=== PATIENT | female | born 1970 | race Two or more races ===

== ENCOUNTER 2024-01-13 12:10 | Inpatient (IN) | payer MEDICAID, OTHER ==
[~2024-01-13] VITALS: Ht 162.6 cm; Wt 61.0 kg
[2024-01-13 13:39] LABS: Basophils # (auto) 0 10 ^3/uL (0-0.2); Basophils % (auto) 0.2 % (0.0-2.0); Eosinophils # (auto) 0 10 ^3/uL (0-0.8); Hematocrit 43.2 % (36.0-46.0); Lymphocytes % (auto) 6.4 % (10.0-50.0); Mean Corpuscular Hemoglobin 32.9 pg (28.0-32.0); Mean Corpuscular Hgb Conc. 34.8 g/dL (32.0-36.0); Mean Corpuscular Volume 94.5 fL (80.0-100.0); Monocytes # (auto) 0.6 10 ^3/uL (0-1.3); Neutrophils # (auto) 13.8 10 ^3/uL (1.6-8.6); Neutrophils % (auto) 89.4 % (37.0-80.0); Platelet Count (auto) 272 10^3/uL (140-450); Red Blood Cells 4.57 10^6/uL (4.0-5.20); Red Cell Distribution Width 13.6 % (11.8-14.3); White Blood Cell 15.4 10^3/uL (4.4-10.8)
[2024-01-13 13:53] LABS: Alanine Aminotransferase 12 U/L (7-40); Albumin 4.6 g/dL (3.2-4.8); Alkaline Phosphatase 82 U/L (46-116); Anion Gap 6 (5-15); Aspartate Aminotransferase 9 U/L (13-40); BUN/Creatinine Ratio 16.4 (10.0-20.0); Blood Urea Nitrogen 11 mg/dL (9-23); Calcium 10.5 mg/dL (8.7-10.4); Carbon Dioxide 27 mmol/L (20-30); Chloride 105 mmol/L (98-107); Glucose 151 mg/dL (74-106); Potassium 3.9 mmol/L (3.5-5.1); Sodium 138 mmol/L (136-145); Total Protein 7.3 g/dL (5.7-8.2)
[2024-01-13 14:39] LABS: Urine Bacteria None Seen /hpf (None Seen); Urine Blood 1+ /uL (Negative); Urine Clarity Turbid (Clear); Urine Color Yellow (Yellow); Urine Mucus MODERATE (None Seen); Urine Protein, UAD 1+ (Negative); Urine Specific Gravity 1.035 (1.001-1.035); Urine Urobilinogen Normal (Negative); Urine WBC 3 /hpf (0 - 5); Urine pH 6.5 (5.0-9.0)
[2024-01-13] MEDS: ONDANSETRON ODT 4 MG TAB PO ONE (18:33)
[2024-01-13] MEDS: KETOROLAC TROMETH 30 MG/ML 1ML VIAL IM ONE (18:34)
[2024-01-14] VITALS (15 sets, daily range): BP systolic 84–101; BP diastolic 42–59; PULSE 46–63; RESP 15–18; TEMP 97.7–98.4; O2SAT 94–100
[2024-01-14] MEDS: SODIUM CHLORIDE 0.9% 1,000 ML IV SCH ×2 (05:35→18:54)
[2024-01-14 06:01] LABS: Basophils # (auto) 0 10 ^3/uL (0-0.2); Basophils % (auto) 0.5 % (0.0-2.0); Eosinophils # (auto) 0.2 10 ^3/uL (0-0.8); Eosinophils % (auto) 2.3 % (0.0-7.0); Hematocrit 39.9 % (36.0-46.0); Hemoglobin 13.8 g/dL (12.2-16.2); Lymphocytes # (auto) 2.2 10 ^3/uL (0.4-5.4); Lymphocytes % (auto) 25.4 % (10.0-50.0); Mean Corpuscular Hemoglobin 33.3 pg (28.0-32.0); Mean Corpuscular Hgb Conc. 34.5 g/dL (32.0-36.0); Mean Corpuscular Volume 96.4 fL (80.0-100.0); Monocytes # (auto) 0.5 10 ^3/uL (0-1.3); Monocytes % (auto) 6.2 % (0.0-12.0); Neutrophils # (auto) 5.6 10 ^3/uL (1.6-8.6); Neutrophils % (auto) 65.6 % (37.0-80.0); Platelet Count (auto) 260 10^3/uL (140-450); Red Blood Cells 4.14 10^6/uL (4.0-5.20); Red Cell Distribution Width 13.5 % (11.8-14.3); White Blood Cell 8.6 10^3/uL (4.4-10.8)
[2024-01-14] MEDS ORDERED: ONDANSETRON HCL 4 MG/2 ML VIAL IV PRN (06:15)
[2024-01-14] MEDS: PANTOPRAZOLE 40 MG/10 ML VIAL INJ IV ONE (06:19)
[2024-01-14] MEDS: SODIUM CHLORIDE 0.9% 500 ML IV ONE (07:46)
[2024-01-14 09:01] LABS: COVID19 ANTIGEN SOFIA FIA NEGATIVE (NEGATIVE); Rapid Influenza A Negative (Negative); Rapid Influenza B Negative (Negative)
[2024-01-14] MEDS: ALBUTEROL SULF 2.5 MG/0.5ML(0.5%) NEB SOLN NEB PRN (13:02)
[2024-01-14] MEDS: IPRATROPIUM BROM 0.5 MG/2.5ML INH SOL NEB SCH (13:02)
[2024-01-14] MEDS ORDERED: ACETAMINOPHEN 500 MG TAB PO PRN (18:15)
[2024-01-15] VITALS (10 sets, daily range): BP systolic 85–112; BP diastolic 45–61; PULSE 42–57; RESP 16–20; TEMP 97–97.7; O2SAT 94–100
[2024-01-15 08:43] LABS: Basophils # (auto) 0 10 ^3/uL (0-0.2); Basophils % (auto) 0.9 % (0.0-2.0); Eosinophils # (auto) 0.2 10 ^3/uL (0-0.8); Eosinophils % (auto) 3.8 % (0.0-7.0); Hematocrit 37.6 % (36.0-46.0); Hemoglobin 12.9 g/dL (12.2-16.2); Lymphocytes # (auto) 1.6 10 ^3/uL (0.4-5.4); Mean Corpuscular Hemoglobin 33.1 pg (28.0-32.0); Mean Corpuscular Hgb Conc. 34.2 g/dL (32.0-36.0); Mean Corpuscular Volume 96.7 fL (80.0-100.0); Monocytes # (auto) 0.3 10 ^3/uL (0-1.3); Monocytes % (auto) 5.8 % (0.0-12.0); Neutrophils # (auto) 2.7 10 ^3/uL (1.6-8.6); Neutrophils % (auto) 56.5 % (37.0-80.0); Platelet Count (auto) 219 10^3/uL (140-450); Red Blood Cells 3.88 10^6/uL (4.0-5.20); Red Cell Distribution Width 13.1 % (11.8-14.3); White Blood Cell 4.8 10^3/uL (4.4-10.8)
[2024-01-15 09:01] LABS: Chloride 109 mmol/L (98-107); Potassium 4.1 mmol/L (3.5-5.1); Sodium 142 mmol/L (136-145)
[2024-01-15 09:02] LABS: Anion Gap 5 (5-15); Calcium 9.2 mg/dL (8.7-10.4); Carbon Dioxide 28 mmol/L (20-31)
[2024-01-15 09:07] LABS: BUN/Creatinine Ratio 13.7 (10.0-20.0); Blood Urea Nitrogen 10 mg/dL (9-23); Glucose 94 mg/dL (74-106)
[2024-01-15 10:06] LABS: Anti-Nuclear Antibody Direct Negative (Negative)
[2024-01-15] MEDS: SODIUM CHLORIDE 0.9% 500 ML IV ONE (10:43)
[2024-01-15] MEDS: PANTOPRAZOLE 40 MG/10 ML VIAL INJ IV SCH (10:43)
[2024-01-15 12:20] LABS: Amphetamine Screen, Urine Neg (NEGATIVE)
[2024-01-15 12:21] LABS: Barbiturate Scree,Urine Neg (NEGATIVE); Benzodiazephine Screen, Urine Neg (NEGATIVE); Cannabinoid Screen, Urine Neg (NEGATIVE); Cocaine Screen, Urine Neg (NEGATIVE); Opiate Scree,Urine Neg (NEGATIVE); Phencyclidine Screen, Urine Neg (NEGATIVE)
== END 2024-01-15 15:15 | disposition home or self-care (01) | DRG 249 ==
LOC: ER 12:10 → TELE-CENTR 01-14 05:10 → TELE 01-14 05:10 → TELE-CENTR 01-14 08:57
PROVIDERS: ADMIT Internal Medicine Geriatric Medicine; ATTEND Emergency Medicine
DX: A09 Infectious gastroenteritis and colitis, unspecified (principal); J44.1 Chronic obstructive pulmonary disease with (acute) exacerbation; R00.1 Bradycardia, unspecified; K80.20 Calculus of gallbladder without cholecystitis without obstruction; Z20.822 Contact with and (suspected) exposure to COVID-19; K44.9 Diaphragmatic hernia without obstruction or gangrene; Z98.891 History of uterine scar from previous surgery
CPT/HCPCS: 36415; 71045; 74176; 76705; 80048; 80053; 80307; 80320; 81001; 81025; 83036; 83690; 83880; 84443; 84484; 85025; 86038; 86141; 86431; 87081; 87426; 87804; 93005; 93306; 94640; G0378; J2470

== ENCOUNTER 2024-05-23 12:48 | Inpatient (IN) | payer MEDICAID ==
[~2024-05-23] VITALS: Ht 162.6 cm; Wt 26.6 kg
--- NOTE | 2024-05-23 13:01 | ED.PDOC ---
GI ASSESSMENT HPI Comments 54 y.o female presents to the ED for a chief complaint of epigastric pain associated with nausea and vomiting that started this morning at 0500. Patient describes pain as sharp, constant, non radiating and rating a 10/10 on the pain scale. Patient reported over 20-30 non bilious non bloody emesis. Patient reports similar pain last year around 12/2023, was admitted at this hospital due to gastroenteritis. Time Seen by MD: 12:54 Primary Care Provider: NONE Reviewed Notes: Nurses Notes, Medications, Allergies Allergies: Coded Allergies: NO KNOWN ALLERGIES (Unverified , 01/13/24) Home Meds No Active Prescriptions or Reported Meds Information Source: Patient Mode of Arrival: Ambulatory Timing: Hours Duration: Intermittent Quality: Sharp Vomitus: Hard Stool: Normal Severity: Moderate Recent: None Recent Hx of: None Pain Location: Epigastric Modifying Factors: Nothing Associated sign and symptoms: Nausea, Vomiting, Abdominal Pain Past Medical History PAST MEDICAL HISTORY: Denies Surgical History: (2), Tubal Ligation [employer]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 [employer]EN[employer]AL [employer] INSPECTOR Hx Family History Family History: Reviewed,noncontributory to illness Social History Smoker: Non-Smoker Alcohol: Denies ETOH Use Drugs: Denies Drug Use Lives In: Home Constitutional: denies: chills, diaphoresis, fatigue, fever, malaise, sweats, weakness, others EENTM: denies: blurred vision, double vision, ear bleeding, ear discharge, ear drainage, ear pain, ear ringing, eye pain, eye redness, hearing loss, mouth pain, mouth swelling, nasal discharge, nose bleeding, nose congestion, nose pain, photophobia, tearing, throat pain, throat swelling, voice changes, others Respiratory: denies: cough, hemoptysis, orthopnea, SOB at rest, shortness of breath, SOB with excertion, stridor, wheezing, others Cardiovascular: denies: chest pain, dizzy spells, diaphoresis, Dyspnea on exertion, edema, irregular heart beat, left arm pain, lightheadedness, palpitations, PND, syncope, others Gastrointestinal: reports: abdominal pain, nausea, vomiting; denies: abdomen distended, blood streaked bowels, constipated, diarrhea, dysphagia, difficulty swallowing, hematemesis, melena, poor appetite, poor fluid intake, rectal bleeding, rectal pain, others Genitourinary: denies: abnormal vagina bleeding, burning, dyspareunia, dysuria, flank pain, frequency, hematuria, incontinence, pain, , vagina discharge, urgency, others Neurological: denies: dizziness, fainting, headache, left sided numbness, left sided weakness, numbness, paresthesia, pre-existing deficit, right sided numbness, right sided weakness, seizure, speech problems, tingling, tremors, weakness, others Musculoskeletal: denies: back pain, gout, joint pain, joint swelling, muscle pain, muscle stiffness, neck pain, others Integumetry: denies: bruises, change in color, change in hair/nails, dryness, laceration, lesions, lumps, rash, wounds, others Allergic/Immunocompromised: denies: Difficulty Healing, Frequent Infections, Hives, Itching, others Hematologic/Lymphatic: denies: anemia, blood clots, easy bleeding, easy bruising, swollen glands, others Endocrine: denies: excessive hunger, excessive sweating, excessive thirst, excessive urination, flushing, intolerance to cold, intolerance to heat, unexplained weight gain, unexplained weight loss, others Psychiatric: denies: anxiety, bipolar disorder, depression, hopeless, panic disorder, schizophrenia, sleepless, suicidal, others All Other Systems: Reviewed and Negative Physical Exam General Appearance: Moderate Distress HEENT: Normal ENT Inspection, Pharynx Normal, TMs Normal Neck: Full Range of Motion, Non-Tender, Normal, Normal Inspection Respiratory: Chest Non-Tender, Lungs Clear, No Accessory Muscle Use, No Respiratory Distress, Normal Breath Sounds Cardiovascular: No Edema, No JVD, No Murmur, No Gallop, Normal Peripheral Pulses, Regular Rate/Rhythm Breast Exam: Deferred Gastrointestinal: Epigastric, No Organomegaly, No Pulsatile Mass, Normal Bowel Sounds, Soft, Tenderness Genitalia: Deferred Pelvic: Deferred Rectal: Deferred Extremities: No calf tenderness, Normal capillary refill, Normal inspection, Normal range of motion, Non-tender, No pedal edema Musculoskeletal : Apperance: Normal Neurologic: Alert, coronary clinical specialist II-XII nml as Tested, No Motor Deficits, Normal Affect, Normal Mood, No Sensory Deficits Cerebellar Function: Normal Reflexes: Normal Skin: Dry, Normal Color, Warm Lymphatic: No Adenopathy Was a procedure done? Was a procedure done?: No GI differential Dx Differential Diagnosis: Cholangitis, Cholecystitis, Esophagitis, Gastroenteritis, UTI, Electrolyte Imbalance, Viral X-Ray, Labs, Meds, VS Vital Signs Date Time Temp Pulse Resp B/P (MAP) Pulse Ox O2 Delivery O2 Flow Rate FiO2 05/23/24 13:20 98.8 55 18 89/50 (63) 99 Lab Test 05/23/24 13:47 Range/Units White Blood Count 10.1 4.4-10.8 10^3/uL Red Blood Count 4.50 4.0-5.20 10^6/uL Hemoglobin 14.6 12.2-16.2 g/dL Hematocrit 43.2 36.0-46.0 % Mean Corpuscular Volume 96.2 80.0-100.0 fL Mean Corpuscular Hemoglobin 32.6 H 28.0-32.0 pg Mean Corpuscular Hemoglobin Concent 33.8 32.0-36.0 g/dL Red Cell Distribution Width 13.6 11.8-14.3 % Platelet Count 282 140-450 10^3/uL Mean Platelet Volume 8.9 6.9-10.8 fL Neutrophils (%) (Auto) 90.2 H 37.0-80.0 % Lymphocytes (%) (Auto) 6.8 L 10.0-50.0 % Monocytes (%) (Auto) 2.6 0.0-12.0 % Eosinophils (%) (Auto) 0.2 0.0-7.0 % Basophils (%) (Auto) 0.2 0.0-2.0 % Neutrophils # (Auto) 9.1 H 1.6-8.6 10 ^3/uL Lymphocytes # (Auto) 0.7 0.4-5.4 10 ^3/uL Monocytes # (Auto) 0.3 0-1.3 10 ^3/uL Eosinophils # (Auto) 0 0-0.8 10 ^3/uL Basophils # (Auto) 0 0-0.2 10 ^3/uL Nucleated Red Blood Cells 0.0 % Sodium Level 141 136-145 mmol/L Potassium Level 4.0 3.5-5.1 mmol/L Chloride Level 106 98-107 mmol/L Carbon Dioxide Level 26 20-31 mmol/L Anion Gap 9 5-15 Blood Urea Nitrogen 8 L 9-23 mg/dL Creatinine 0.71 0.550-1.02 mg/dL Glomerular Filtration Rate Calc 100 >90 mL/min BUN/Creatinine Ratio 11.3 10.0-20.0 Serum Glucose 143 H 74-106 mg/dL Calcium Level 10.5 H 8.7-10.4 mg/dL Total Bilirubin 0.6 0.2-1.0 mg/dL Aspartate Amino Transferase (AST) 12 L 13-40 U/L Alanine Aminotransferase (ALT) 17 7-40 U/L Alkaline Phosphatase 69 46-116 U/L Total Protein 6.6 5.7-8.2 g/dL Albumin 4.3 3.2-4.8 g/dL Lipase 25 12-53 U/L INDICATION: pain US ABDOMEN LIMITED on DOS: 01/14/24, US LIVER on DOS: 01/14/24 IMPRESSION: Gallstones are noted. The patient's CBC and chemistry panel are within normal limits The liver enzymes are normal limits The lipase is within normal limits An IV Hep-Lock was established The patient was being given morphine IV push for the pain The patient was given Zofran 4 mg IV push for the nausea The patient was also given Protonix 40 IV push At this time, the patient was being admitted to the hospitalist. A GI consult has also been obtained. Images Reviewed?: Images reviewed and evaluated by me Time of 1ST Reevaluation: 12:57 Reevaluation 1ST: Unchanged Patient Education/Counseling: Diagnosis, Treatment, Prognosis Family Education/Counseling: No Family Present Departure 1 Departure Time of Disposition: 14:42 Impression: Primary Impression: Intractable abdominal pain Additional Impressions: Vomiting Qualified Codes: R11.14 - Bilious vomiting Cholelithiasis Qualified Codes: K80.20 - Calculus of gallbladder without cholecystitis without obstruction Disposition: ADMITTED INPATIENT Admit to: Med Surg Condition: Fair e-Prescriptions No Active Prescriptions or Reported Meds Critical Care Note Critical Care Time?: No Stability Stability form required: Yes Unstable for transfer: ED Physician Assesment (Clinical assesment) I personally scribed for CARLY KATZ MD ([email or web address]) on 05/23/24 at 13:01. Electronically submitted by Peggy Jenkins ([facility]). I personally scribed for CARLY KATZ MD ([email or web address]) on 05/23/24 at 13:32. Electronically submitted by Peggy Jenkins ([facility]). CARLY KATZ MD May 23, 2024 13:01
--- NOTE | 2024-05-23 13:28 | DVH ---
INDICATION: pain TECHNIQUE: Multiple real-time sonographic images were obtained of the right upper quadrant. COMPARISON: US ABDOMEN LIMITED on DOS: 01/14/24, US LIVER on DOS: 01/14/24 FINDINGS: The liver demonstrates homogenous echotexture without focal mass lesions. The liver measure s 14cm. There is no intrahepatic or extrahepatic ductal dilatation. The common duct measures 0.4 mm. Gallstones are noted. The gallbladder wall measures 0.2 mm and is within normal limits. The right kidney measures 9 cm. The right kidney is normal in contour, size, and shape. The echoge nicity is normal. There is no hydronephrosis. The pancreas is not well visualized due to overlying bowel gas. IMPRESSION: Gallstones are noted.
[2024-05-23 14:02] LABS: Basophils # (auto) 0 10 ^3/uL (0-0.2); Basophils % (auto) 0.2 % (0.0-2.0); Eosinophils # (auto) 0 10 ^3/uL (0-0.8); Eosinophils % (auto) 0.2 % (0.0-7.0); Hematocrit 43.2 % (36.0-46.0); Hemoglobin 14.6 g/dL (12.2-16.2); Lymphocytes # (auto) 0.7 10 ^3/uL (0.4-5.4); Lymphocytes % (auto) 6.8 % (10.0-50.0); Mean Corpuscular Hemoglobin 32.6 pg (28.0-32.0); Mean Corpuscular Hgb Conc. 33.8 g/dL (32.0-36.0); Mean Corpuscular Volume 96.2 fL (80.0-100.0); Monocytes # (auto) 0.3 10 ^3/uL (0-1.3); Monocytes % (auto) 2.6 % (0.0-12.0); Neutrophils # (auto) 9.1 10 ^3/uL (1.6-8.6); Neutrophils % (auto) 90.2 % (37.0-80.0); Platelet Count (auto) 282 10^3/uL (140-450); Red Cell Distribution Width 13.6 % (11.8-14.3); White Blood Cell 10.1 10^3/uL (4.4-10.8)
[2024-05-23 14:26] LABS: Alanine Aminotransferase 17 U/L (7-40); Albumin 4.3 g/dL (3.2-4.8); Alkaline Phosphatase 69 U/L (46-116); Anion Gap 9 (5-15); BUN/Creatinine Ratio 11.3 (10.0-20.0); Bilirubin, Total 0.6 mg/dL (0.2-1.0); Carbon Dioxide 26 mmol/L (20-31); Chloride 106 mmol/L (98-107); Lipase 25 U/L (12-53); Sodium 141 mmol/L (136-145); Total Protein 6.6 g/dL (5.7-8.2)
[2024-05-23 14:27] LABS: Aspartate Aminotransferase 12 U/L (13-40); Blood Urea Nitrogen 8 mg/dL (9-23); Calcium 10.5 mg/dL (8.7-10.4); Glucose 143 mg/dL (74-106)
[2024-05-23] MEDS: SODIUM CHLORIDE 0.9% 500 ML IVB ONE (17:42)
[2024-05-23] MEDS: PANTOPRAZOLE 40 MG/10 ML VIAL INJ IV ONE (17:44)
[2024-05-23] MEDS: ONDANSETRON HCL 4 MG/2 ML VIAL IV ONE (17:44)
[2024-05-23] MEDS ORDERED: DOCUSATE SOD 100 MG CAP PO PRN (17:45)
[2024-05-23] MEDS: MORPHINE SULFATE 4 MG/ML SYR/VIAL IV ONE (17:46)
[2024-05-23 20:13] LABS: Urine Bacteria None Seen /hpf (None Seen)
[2024-05-23 20:30] LABS: Urine Blood Negative /uL (Negative); Urine Clarity Clear (Clear); Urine Color Yellow (Yellow); Urine Mucus FEW (None Seen); Urine Protein, UAD 1+ (Negative); Urine Specific Gravity 1.028 (1.001-1.035); Urine Squamous Epithelial Cell FEW /hpf (<5); Urine Urobilinogen Normal (Negative); Urine WBC 2 /HPF (0-5); Urine pH 6.5 (5.0-9.0)
[2024-05-23] MEDS ORDERED: NITROGLYCERIN 0.4 MG SL TAB SL PRN (21:30)
[2024-05-23] MEDS ORDERED: MORPHINE SULFATE INJ 2 MG/ml SYRG IV PRN (21:30)
--- NOTE | 2024-05-23 21:31 | DVHHP2 ---
History of Present Illness Reason for Visit: Intractable abdominal pain History of Present Illness The patient is a 54-year-old female who denies past medical history presented to [facility] ED with complaint of epigastric abdominal pain. Patient reports symptoms progressively get worse with nausea, vomiting, described pain as sharp in nature, constant, rating pain 10/10 numeric scale, getting worse that prompted this visit. Patient was seen and evaluated in the ED, laboratory data shows WBC 10.1, platelets 282, sodium 141, potassium 4.0, BUN 8, creatinine 0.71, GFR 100, glucose 143, calcium 10.5, lipase 25, AST 12, ALT 17, blood pressure 146/81, heart rate 55, temperature 98.0 F, O2 saturation 99% on room air. Gallbladder ultrasound revealing gallstones. Please see medication orders section in the computer. On my assessment, patient denied chest pain, no headache, no diaphoresis, no shortness of breaths, no diarrhea, no nausea, no vomiting, no fever, no chills. Patient was admitted for further evaluation and medical management. Past Medical History Denies past medical history Past Surgical History (2), Tubal Ligation Family History Reviewed, noncontributory to the management of this case. Past Social History The patient lives at home, denies smoking, alcohol or illicit drugs abuse. Review of Systems Constitutional: No: Fever, Chills, Sweats, Weakness, Malaise, Other Eyes: No: Pain, Vision change, Conjunctivae inflammation, Eyelid inflammation, Other, Redness ENT: No: Ear pain, Ear discharge, Nose pain, Nose discharge, Nose congestion, Mouth pain, Mouth swelling, Throat pain, Throat swelling, Other Respiratory: No: Cough, Dry, Shortness of breath, SOB with excertion, Wheezing, Hemoptysis, Pleuritic Pain, Sputum, Wheezing, Other Cardiovascular: No: Chest Pain, Palpitations, Orthopnea, Paroxysmal Noc. Dyspnea, Edema, Lt Headedness, Other Gastrointestinal: Nausea, Vomiting, Abdominal Pain; No: Diarrhea, Constipation, Melena, Hematochezia, Other Genitourinary: No Dysuria, No Frequency, No Incontinence, No Hematuria, No Retention, No Other Musculoskeletal: No: other, neck pain, shoulder pain, arm pain, back pain, hand pain, leg pain, foot pain Skin: No: Rash, Lesions, Jaundice, Bruising, Other Neurological: No: Weakness, Numbness, Incoordination, Change in speech, Confusion, Seizures, Other Allergies: Coded Allergies: NO KNOWN ALLERGIES (Unverified , 01/13/24) Medications Current Medications Medications Dose Ordered Sig/Jeannette Route Start Time Stop Time Status Last Admin Dose Admin Pantoprazole Sodium 40 mg DAILY IV 05/24/24 10:00 Sodium Chloride 10 ml Q8HR IV 05/23/24 22:00 Acetaminophen/ Hydrocodone Bitart 1 tab Q4HP PRN PO 05/23/24 17:45 Ondansetron HCl 4 mg Q4HP PRN IV 05/23/24 17:45 Docusate Sodium 100 mg BIDPRN PRN PO 05/23/24 17:45 Acetaminophen 650 mg Q6HP PRN PO 05/23/24 17:45 Morphine Sulfate 2 mg Q4HPRN PRN IV 05/23/24 17:45 Nitroglycerin 0.4 mg Q5MINP PRN SL 05/23/24 21:30 UNV Morphine Sulfate 2 mg Q30M PRN IV 05/23/24 21:30 UNV Exam Vital Signs Vital Signs Date Time Temp Pulse Resp B/P (MAP) Pulse Ox O2 Delivery O2 Flow Rate FiO2 05/23/24 18:39 98.7 62 16 138/61 (86) 95 98.7 05/23/24 17:30 Room Air General Appearance: Alert, Oriented X3, Cooperative, No acute distress HEENT: Atraumatic, PERRLA, EOMI, Mucous membr. moist/pink Respiratory: Clear to auscultation, Normal air movement Cardiovascular: Regular rate, Normal S1, Normal S2, No murmurs Abdominal: Normal bowel sounds, Soft, No hepatospenomegaly, No masses, Other (Reports tenderness) Extremities: No clubbing, No cyanosis, No edema, Normal pulses, No tenderness/swelling Skin: No rashes, No breakdown, No significant lesion Neuro: Normal gait, Normal speech, Strength at 5/5 X4 ext, Normal tone, Sensation intact, Cranial nerves 3-12 NL, Reflexes 2+ Psych/Mental Status: Mental status NL, Mood NL Labs/Xrays Labs Test 05/23/24 17:32 05/23/24 13:47 Range/Units Urine Color Yellow Yellow Urine Clarity Clear Clear Urine pH 6.5 5.0-9.0 Urine Specific [place] 1.028 1.001-1.035 Urine Protein 1+ H Negative Urine Ketones 2+ H Negative Urine Blood Negative Negative /uL Urine Nitrite Negative Negative Urine Bilirubin Negative Negative Urine Urobilinogen Normal Negative mg/dL Urine Leukocyte Esterase Negative Negative /uL Urine RBC 5 0 - 4 /hpf Urine Microscopic WBC 2 0-5 /HPF Urine Squamous Epithelial Cells Few <5 /hpf Urine Bacteria None seen None Seen /hpf Urine Mucus Few None Seen Urine Glucose Trace Normal mg/dL White Blood Count 10.1 4.4-10.8 10^3/uL Red Blood Count 4.50 4.0-5.20 10^6/uL Hemoglobin 14.6 12.2-16.2 g/dL Hematocrit 43.2 36.0-46.0 % Mean Corpuscular Volume 96.2 80.0-100.0 fL Mean Corpuscular Hemoglobin 32.6 H 28.0-32.0 pg Mean Corpuscular Hemoglobin Concent 33.8 32.0-36.0 g/dL Red Cell Distribution Width 13.6 11.8-14.3 % Platelet Count 282 140-450 10^3/uL Mean Platelet Volume 8.9 6.9-10.8 fL Neutrophils (%) (Auto) 90.2 H 37.0-80.0 % Lymphocytes (%) (Auto) 6.8 L 10.0-50.0 % Monocytes (%) (Auto) 2.6 0.0-12.0 % Eosinophils (%) (Auto) 0.2 0.0-7.0 % Basophils (%) (Auto) 0.2 0.0-2.0 % Neutrophils # (Auto) 9.1 H 1.6-8.6 10 ^3/uL Lymphocytes # (Auto) 0.7 0.4-5.4 10 ^3/uL Monocytes # (Auto) 0.3 0-1.3 10 ^3/uL Eosinophils # (Auto) 0 0-0.8 10 ^3/uL Basophils # (Auto) 0 0-0.2 10 ^3/uL Nucleated Red Blood Cells 0.0 % Sodium Level 141 136-145 mmol/L Potassium Level 4.0 3.5-5.1 mmol/L Chloride Level 106 98-107 mmol/L Carbon Dioxide Level 26 20-31 mmol/L Anion Gap 9 5-15 Blood Urea Nitrogen 8 L 9-23 mg/dL Creatinine 0.71 0.550-1.02 mg/dL Glomerular Filtration Rate Calc 100 >90 mL/min BUN/Creatinine Ratio 11.3 10.0-20.0 Serum Glucose 143 H 74-106 mg/dL Calcium Level 10.5 H 8.7-10.4 mg/dL Total Bilirubin 0.6 0.2-1.0 mg/dL Aspartate Amino Transferase (AST) 12 L 13-40 U/L Alanine Aminotransferase (ALT) 17 7-40 U/L Alkaline Phosphatase 69 46-116 U/L Total Protein 6.6 5.7-8.2 g/dL Albumin 4.3 3.2-4.8 g/dL Lipase 25 12-53 U/L PATIENT: MAURICIO PETERSEN ACCT: [id number] UNIT: [id number] : 1970 LOC: ER ROOM / BED: / AGE / SEX: 54 / F ADM STATUS: REG ER SERVICE 1257 ORDERING PHYSICIAN: CARLY KATZ MD PROCEDURE(s): GBUS - GALLBLADDER REASON: pain ORDER NUMBER(s): [id number], ACCESSION NUMBER(s): [id number] INDICATION: pain TECHNIQUE: Multiple real-time sonographic images were obtained of the right upper quadrant. COMPARISON: US ABDOMEN LIMITED on DOS: 01/14/24, US LIVER on DOS: 01/14/24 FINDINGS: The liver demonstrates homogenous echotexture without focal mass lesions. The liver measures 14cm. There is no intrahepatic or extrahepatic ductal dilatation. The common duct measures 0.4 mm. Gallstones are noted. The gallbladder wall measures 0.2 mm and is within normal limits. The right kidney measures 9 cm. The right kidney is normal in contour, size, and shape. The echogenicity is normal. There is no hydronephrosis. The pancreas is not well visualized due to overlying bowel gas. IMPRESSION: Gallstones are noted. Assessment/Plan Assessment/Plan Intractable abdominal pain Intractable nausea and vomiting Bilious vomiting Cholelithiasis Calculus of gallbladder without cholecystitis without obstruction Plan 1. Admit to med surge unit 2. Breathing treatment 3. Pain control management 4. Management of fluids and electrolytes 5. Consultation for hospitalist 6. Diagnostic tests bladder ultrasound 7. DVT prophylaxis on SCDs 8. Repeat labs CBC, CMP in a.m. 9. Continue with current medical management 10. Treatment plan discussed with patient and RN. Patient verbalized understanding. Plan discussed with: Patient, Other (RN) My Orders Orders - KRISTOPHER CONRAD DNP Procedure Category Date Status Time Pantoprazole PHA 05/24/24 In Process (Protonix) 10:00 Allergies OBED 05/23/24 In Process 17:38 Code Status CODE 05/23/24 Transmitted 17:38 Sodium Chloride Lock PHA 05/23/24 In Process (Saline Lock Ns) 22:00 Oxygen Per Hour RT 05/23/24 Transmitted 17:38 Hydrocodone-Acet PHA 05/23/24 In Process 5/325mg Tab ([place] 17:45 Ondansetron Hcl PHA 05/23/24 In Process (Zofran) 17:45 Docusate Sodium PHA 05/23/24 In Process Capsule (Colace 17:45 Complete Blood Count LAB 05/24/24 Verified 04:00 Comprehensive LAB 05/24/24 Verified Metabolic Panel 04:00 Condition: Serious OBED 05/23/24 In Process 17:38 Acetaminophen Tablet PHA 05/23/24 In Process (Tylenol Tablet) 17:45 Clear Liq Diet DIET 05/23/24 Transmitted Dinner Bedrest With Bathroom OBED 05/23/24 In Process Privileg 17:38 Morphine Sulfate PHA 05/23/24 Logged Injection 17:45 Sequential OBED 05/23/24 In Process Compression Device Admit ADMIT 05/23/24 Transmitted 21:28 Nitroglycerin PHA 05/23/24 Transmitted Sublingual (Ntrostat 21:30 Morphine Sulfate PHA 05/23/24 Transmitted Injection 21:30 Notify Md Of Changes OBED 05/23/24 Transmitted From Base 21:28 Emergency Dysrhythmia OBED 05/23/24 Transmitted Protocol 21:28 Oxygen By Nasal RT 05/23/24 Transmitted Cannula 21:28 Problem List: (1) Intractable abdominal pain (2) Cholelithiasis (3) Intractable nausea and vomiting (4) Bilious vomiting (5) Calculus of gallbladder without cholecystitis without obstruction Date of Service: May 23, 2024 Billing Provider: KRISTOPHER CONRAD DNP Common Visit Codes: 44758-MECWJAW INP/OBS CARE (HIGH) KRISTOPHER CONRAD DNP May 23, 2024 21:31
[2024-05-23] MEDS: SODIUM CHLOR 0.9% PF (SALINE LOCK) 10ML VIAL/SYR IV SCH (22:33)
[2024-05-23] MEDS: HYDROcodone-ACET 5/325MG TAB PO PRN (22:58)
[2024-05-23 23:01] VITALS: BP 109/62; PULSE 61; RESP 20; TEMP 99.3; O2SAT 96
[2024-05-23] MEDS: ONDANSETRON HCL 4 MG/2 ML VIAL IV PRN (23:08)
[2024-05-23] MEDS: MORPHINE SULFATE INJ 2 MG/ml SYRG IV PRN (23:31)
[2024-05-24] VITALS (7 sets, daily range): BP systolic 84–105; BP diastolic 44–64; PULSE 64–88; RESP 15–20; TEMP 97.9–100.4; O2SAT 77–99
[2024-05-24 04:10] LABS: Alanine Aminotransferase 13 U/L (7-40); Albumin 3.8 g/dL (3.2-4.8); Alkaline Phosphatase 60 U/L (46-116); Anion Gap 9 (5-15); Calcium 9.7 mg/dL (8.7-10.4); Carbon Dioxide 25 mmol/L (20-31); Chloride 106 mmol/L (98-107); Hematocrit 38.6 % (36.0-46.0); Hemoglobin 13.5 g/dL (12.2-16.2); Mean Corpuscular Hemoglobin 33.6 pg (28.0-32.0); Platelet Count (auto) 193 10^3/uL (140-450); Potassium 3.7 mmol/L (3.5-5.1); Red Blood Cells 4.02 10^6/uL (4.0-5.20); Red Cell Distribution Width 13.6 % (11.8-14.3); Sodium 140 mmol/L (136-145); White Blood Cell 6.6 10^3/uL (4.4-10.8)
[2024-05-24 04:11] LABS: Aspartate Aminotransferase 8 U/L (13-40); Bilirubin, Total 0.9 mg/dL (0.2-1.0); Blood Urea Nitrogen 9 mg/dL (9-23); Glucose 114 mg/dL (74-106); Total Protein 6.1 g/dL (5.7-8.2)
[2024-05-24] MEDS: ACETAMINOPHEN 325 MG TAB PO PRN (04:22)
[2024-05-24 04:33] LABS: Band Neutrophils % (manual) 0; Basophils % (manual) 0 (0.0-2.0); Blast Cells 0; Eosinophils % (manual) 0 (0-7); Metamyelocytes % 0; Monocytes % (manual) 0 (0-12); Myelocytes % 0; Promyelocytes % 0; Reactive Lymphocytes 0
[2024-05-24 06:59] LABS: Lymphocytes % (manual) 4 (10.0-50.0)
[2024-05-24 07:00] LABS: Platelet Estimate Adequate
[2024-05-24] MEDS: SODIUM CHLORIDE 0.9% 500 ML IV ONE ×2 (07:10→09:31)
[2024-05-24 08:54] LABS: INR 1.08 (0.9-1.15); Partial Thromboplastin Time 27.9 SEC (24.5-34.5); Prothrombin Time 11.4 sec (9.3-11.8)
--- NOTE | 2024-05-24 08:58 | DVH ---
CHEST RADIOGRAPH Indication: sepsis Technique: Single frontal view of the chest was obtained Comparison: XY CHEST XRAY 1 VIEW on DOS: 01/13/24 FINDINGS: Lines and Tubes: None Lungs: No focal consolidation. Pleura: No effusion. No pneumothorax. Cardiomediastinal contours: Unremarkable Bones: No acute osseous abnormality. IMPRESSION: No acute cardiopulmonary disease.
--- NOTE | 2024-05-24 09:29 | DVH ---
Exam: CT CT AB PEL WO CON-NO ORAL OR IV History: abdominal pain Comparison Study: CT dated 01/13/2024. Technique: Multidetector spiral CT of the abdomen and pelvis was performed from lung bases to pubic s ymphysis. Imaging was performed without intravenous contrast. Coronal and sagittal multiplanar refor mats were obtained from the axial data set by the technologist. Radiation Dose : 1. Abdomen/Pelvis: CTDIvol 5.6 mGy, DLP 295.8 mGy*cm. Findings: Evaluation of vasculature and solid organs is limited due to lack of intravenous contrast use. Lung Bases: Bilateral lower lobe atelectasis. Visualized portions of the heart and pericardium are un remarkable. Liver: The liver is normal in size. No focal lesions. Gallbladder and Biliary Tree: The gallbladder has multiple gallstones. No intrahepatic or extrahepat ic biliary ductal dilatation. Spleen: Unremarkable Pancreas: The pancreas is grossly unremarkable. Adrenal Glands: Unremarkable Kidneys: Kidneys are unremarkable without calculi or hydronephrosis. GI tract: The stomach is grossly normal in appearance. No evidence of small bowel wall thickening or abnormal dilatation to suggest bowel obstruction. The colon is unremarkable. The appendix is fluid- filled and dilated measuring 1.3 cm in diameter with fat stranding. Peritoneum/mesentery/retroperitoneum. No evidence of free intraperitoneal air. No ascites. No evidenc e of suspicious lymphadenopathy. Abdominal Wall: Unremarkable. Vasculature: The visualized abdominal aorta is normal in size and caliber. Evaluation of abdominal a nd pelvic vessels is limited due to lack of intravenous contrast. Urinary Bladder: Grossly unremarkable for degree of distention. Pelvic Organs: Unremarkable Musculoskeletal: No aggressive focal bony lesions, acute fractures or dislocation. S shaped scoliosis . IMPRESSION: 1. Acute uncomplicated appendicitis. 2. Gallstones. 3. Bibasilar atelectasis.
[2024-05-24] MEDS: SODIUM CHLORIDE 0.9% 1,000 ML IV SCH (09:31)
[2024-05-24] MEDS: PANTOPRAZOLE 40 MG/10 ML VIAL INJ IV SCH (09:42)
[2024-05-24] MEDS: KETOROLAC TROMETH 30 MG/ML 1ML VIAL IV ONE ×2 (09:42→15:39)
[2024-05-24] MEDS: cefTRIAXone 1GM/50ML D5W 50 ML IV ONE (11:30)
[2024-05-24] MEDS: metroNIDAZOLE 500MG/100ML 100 ML IV ONE (12:14)
[2024-05-24] MEDS ORDERED: SODIUM CHLORIDE 0.9% 1,000 ML IV SCH (12:45)
--- NOTE | 2024-05-24 12:45 | DVHINCON2 ---
Date of service: May 24, 2024 Family History: FHx: cancer G8 MOTHER (MOTHER WITH THYROID CANCER) Allergies: Coded Allergies: NO KNOWN ALLERGIES (Unverified , 01/13/24) Home Meds No Active Prescriptions or Reported Meds Current Medications Current Medications Medications (Trade) Dose Ordered Sig/Jeannette Route PRN Reason Start Time Stop Time Status Last Admin Pantoprazole Sodium (Protonix) 40 mg DAILY IV 05/24/24 10:00 05/24/24 09:42 Sodium Chloride (Saline Lock Ns) 10 ml Q8HR IV 05/23/24 22:00 05/24/24 05:53 Acetaminophen/ Hydrocodone Bitart ([place] 5/325MG Tab) 1 tab Q4HP PRN PO MODERATE PAIN (4-6 PAIN SCALE) 05/23/24 17:45 05/23/24 22:58 Ondansetron HCl (Zofran) 4 mg Q4HP PRN IV NAUSEA / VOMITING 05/23/24 17:45 05/23/24 23:08 Docusate Sodium (Colace Capsule) 100 mg BIDPRN PRN PO FOR CONSTIPATION 05/23/24 17:45 Acetaminophen (Tylenol Tablet) 650 mg Q6HP PRN PO PAIN SCALE 1-3 OR TEMP>100.4 05/23/24 17:45 05/24/24 04:22 Morphine Sulfate 2 mg Q4HPRN PRN IV SEVERE PAIN (7-10 PAIN SCALE) 05/23/24 17:45 05/23/24 23:31 Nitroglycerin (Ntrostat Sublingual) 0.4 mg Q5MINP PRN SL FOR CHEST PAIN 05/23/24 21:30 Morphine Sulfate 2 mg Q30M PRN IV FOR CHEST PAIN 05/23/24 21:30 Sodium Chloride 1,000 ml @ 100 mls/hr Q10H IV 05/24/24 09:15 05/24/24 09:31 Ceftriaxone Sodium 50 ml @ 100 mls/hr DAILY@09 IV 05/25/24 09:00 Metronidazole 100 ml @ 100 mls/hr Q8HR IV 05/24/24 22:00 Vital Signs Vital Signs Date Time Temp Pulse Resp B/P (MAP) Pulse Ox O2 Delivery O2 Flow Rate FiO2 05/24/24 09:15 98.8 80 16 98/60 (73) 98 98.8 05/24/24 01:18 Room Air* 0 21 Labs/Diagnostic Data Labs Test 05/24/24 08:14 05/24/24 03:29 05/23/24 17:32 05/23/24 13:47 Range/Units Prothrombin Time 11.4 9.3-11.8 sec Prothrombin Time INR 1.08 0.9-1.15 Activated Partial Thromboplast Time 27.9 24.5-34.5 SEC White Blood Count 6.6 # 4.4-10.8 10^3/uL Red Blood Count 4.02 4.0-5.20 10^6/uL Hemoglobin 13.5 12.2-16.2 g/dL Hematocrit 38.6 # 36.0-46.0 % Mean Corpuscular Volume 96.0 80.0-100.0 fL Mean Corpuscular Hemoglobin 33.6 H 28.0-32.0 pg Mean Corpuscular Hemoglobin Concent 35.0 32.0-36.0 g/dL Red Cell Distribution Width 13.6 11.8-14.3 % Platelet Count 193 140-450 10^3/uL Mean Platelet Volume 8.8 6.9-10.8 fL Neutrophils (%) (Auto) 37.0-80.0 % Lymphocytes (%) (Auto) 10.0-50.0 % Monocytes (%) (Auto) 0.0-12.0 % Basophils (%) (Auto) 0.0-2.0 % Neutrophils # (Auto) 1.6-8.6 10 ^3/uL Lymphocytes # (Auto) 0.4-5.4 10 ^3/uL Monocytes # (Auto) 0-1.3 10 ^3/uL Differential Total Cells Counted 100.0 100 Neutrophils % (Manual) 96 H 37.0-80.0 Band Neutrophils % (Manual) 0 Lymphocytes % (Manual) 4 L 10.0-50.0 Monocytes % (Manual) 0 0-12 Eosinophils % (Manual) 0 0-7 Basophils % (Manual) 0 0.0-2.0 Metamyelocytes % (manual) 0 Myelocytes % (Manual) 0 Promyelocytes % (Manual) 0 Blast Cells % (Manual) 0 Reactive Lymphocytes 0 Platelet Estimate Adequate Sodium Level 140 136-145 mmol/L Potassium Level 3.7 3.5-5.1 mmol/L Chloride Level 106 98-107 mmol/L Carbon Dioxide Level 25 20-31 mmol/L Anion Gap 9 5-15 Blood Urea Nitrogen 9 9-23 mg/dL Creatinine 0.69 0.550-1.02 mg/dL Glomerular Filtration Rate Calc 102 >90 mL/min BUN/Creatinine Ratio 13.0 10.0-20.0 Serum Glucose 114 H 74-106 mg/dL Hemoglobin A1c 5.4 <5.7 % A1C Calcium Level 9.7 8.7-10.4 mg/dL Total Bilirubin 0.9 0.2-1.0 mg/dL Aspartate Amino Transferase (AST) 8 L 13-40 U/L Alanine Aminotransferase (ALT) 13 7-40 U/L Alkaline Phosphatase 60 46-116 U/L Total Protein 6.1 5.7-8.2 g/dL Albumin 3.8 3.2-4.8 g/dL Urine Color Yellow Yellow Urine Clarity Clear Clear Urine pH 6.5 5.0-9.0 Urine Specific [place] 1.028 1.001-1.035 Urine Protein 1+ H Negative Urine Ketones 2+ H Negative Urine Blood Negative Negative /uL Urine Nitrite Negative Negative Urine Bilirubin Negative Negative Urine Urobilinogen Normal Negative mg/dL Urine Leukocyte Esterase Negative Negative /uL Urine RBC 5 0 - 4 /hpf Urine Microscopic WBC 2 0-5 /HPF Urine Squamous Epithelial Cells Few <5 /hpf Urine Bacteria None seen None Seen /hpf Urine Mucus Few None Seen Urine Glucose Trace Normal mg/dL Eosinophils (%) (Auto) 0.2 0.0-7.0 % Eosinophils # (Auto) 0 0-0.8 10 ^3/uL Basophils # (Auto) 0 0-0.2 10 ^3/uL Nucleated Red Blood Cells 0.0 % Lipase 25 12-53 U/L Assessment 54 YEAR OLD FEMALE WITH GALLSTONES AND POSSIBLE APPENDICITIS, WILL GET HIDA SCAN, SHE HAS POINT TENDERNESS IN BOTH RIGHT UPPER AND RIGHT LOWER QUADRANTS, OPERATION RISKS AND COMPLICATIONS EXPLAINED, SHE HAS BEEN GETTING PO LIQUIDS TILL MY ARRIVAL, Plan discussed with: Patient, Other NEDA RESENDIZ MD May 24, 2024 12:45
[2024-05-24] MEDS: D5W/SOD CHL 0.45%/KCL 20MEQ 1,000 ML IV SCH (14:34)
--- NOTE | 2024-05-24 14:50 | DVHPNRES ---
Progress Note Date Seen: May 24, 2024 Resident Creating Document: TOÑA GOMEZ RESIDENT Medical Necessity Reason Pt with a Central, PICC or Fol: No Subjective Review of Systems This is a 34-year-old female with no significant past medical history presented to the ED with a chief complaint of epigastric pain for 1 day prior to this admission. According to the patient abdominal pain started 3 days ago but getting worse for last 1 day which was constant, colicky pain, 11/10, without any aggravating and relieving factors and associated with nausea and few episodes of vomiting. Patient was seen and examined on the bedside. She is alert oriented x3. Complaint of lower abdominal pain and nausea. No other active complaints. Constitutional: No: Fever, Chills, Sweats, Weakness, Malaise, Other Eyes: No: Pain, Vision change, Conjunctivae inflammation, Eyelid inflammation, Other, Redness ENT: No: Ear pain, Ear discharge, Nose pain, Nose discharge, Nose congestion, Mouth pain, Mouth swelling, Throat pain, Throat swelling, Other Respiratory: Shortness of breath, improving No: Cough, Dry,Wheezing, Hemoptysis, Pleuritic Pain, Sputum, Wheezing, Other Cardiovascular: No: Chest Pain, Palpitations, Orthopnea, Paroxysmal Noc. Dyspnea, Edema, Lt Headedness, Other Gastrointestinal: Nausea, Vomiting, Abdominal Pain, NO Diarrhea, Constipation, Melena, Hematochezia, Other Musculoskeletal: No: other, neck pain, shoulder pain, arm pain, back pain, hand pain, leg pain, foot pain Neurological:; No: Weakness, Numbness, Incoordination, Change in speech, Confusion, Seizures Objective vital signs Vital Sign Date Time Temp Pulse Resp B/P (MAP) Pulse Ox O2 Delivery O2 Flow Rate FiO2 05/24/24 13:52 99.8 70 16 90/64 (73) 99 99.8 05/24/24 01:18 Room Air* 0 21 Total Intake and Output 05/23/24 05/23/24 05/24/24 15:00 23:00 07:00 Intake Total 500 ml Balance 500 ml medications Current Medications Medications Dose Ordered Sig/Jeannette Route Start Time Stop Time Status Last Admin Dose Admin Pantoprazole Sodium 40 mg DAILY IV 05/24/24 10:00 05/24/24 09:42 40 MG Sodium Chloride 10 ml Q8HR IV 05/23/24 22:00 05/24/24 14:25 10 ML Acetaminophen/ Hydrocodone Bitart 1 tab Q4HP PRN PO 05/23/24 17:45 05/23/24 22:58 1 TAB Ondansetron HCl 4 mg Q4HP PRN IV 05/23/24 17:45 05/23/24 23:08 4 MG Docusate Sodium 100 mg BIDPRN PRN PO 05/23/24 17:45 Acetaminophen 650 mg Q6HP PRN PO 05/23/24 17:45 05/24/24 04:22 650 MG Morphine Sulfate 2 mg Q4HPRN PRN IV 05/23/24 17:45 05/23/24 23:31 2 MG Nitroglycerin 0.4 mg Q5MINP PRN SL 05/23/24 21:30 Morphine Sulfate 2 mg Q30M PRN IV 05/23/24 21:30 Ceftriaxone Sodium 50 ml @ 100 mls/hr DAILY@09 IV 05/25/24 09:00 Metronidazole 100 ml @ 100 mls/hr Q8HR IV 05/24/24 22:00 Potassium Chloride/Dextrose/ Sod Cl 1,000 ml @ 120 mls/hr Q8H20M IV 05/24/24 12:45 05/24/24 14:34 120 MLS/HR Examination Physical examination: General Appearance: Alert, Oriented X3, Cooperative, No acute distress HEENT: Atraumatic, PERRLA, EOMI, Mucous membrane moist/pink Respiratory: Clear to auscultation, Normal air movement Cardiovascular: Regular rate, Normal S1, Normal S2, No murmurs, no chest wall tenderness Abdominal: Normal bowel sounds, Soft, tenderness in the lower abdomen, No hepatospenomegaly, No masses Extremities: No clubbing, No cyanosis, No edema, Normal pulses, No tenderness/swelling Skin: No rashes, No breakdown, No significant lesion Neuro: Normal gait, Normal speech, Strength at 5/5 X4 ext, Normal tone, Sensation intact, grossly intact cranial nerves Psych/Mental Status: Mental status NL, Mood NL laboratory and microbiology Laboratory Tests 05/24/24 03:29 Test 05/24/24 03:29 Range/Units Serum Glucose 114 H 74-106 mg/dL Labs and/or images reviewed: Labs reviewed by me, Image(s) reviewed by me Problem List/Assessment/Plan Problem List/Assessment/Plan Assessment and plan: # Intractable abdominal pain, nausea and vomiting # Possible acute appendicitis # Possible cholelithiasis without acute cholecystitis # SIRS/ Sepsis due to above - U/S of the gallbladder demonstrated gallstone - CT abdomen pelvis revealed acute uncomplicated appendicitis, gallstones and bibasilar atelectasis - Surgery is on the board - IV D5 W/0.45% normal saline at 120 mL/hour - NPO - HIDA scan to exclude acute cholecystitis - Surgery recommended laparoscopic cholecystectomy and possible open versus laparoscopic appendectomy and scheduled for today - IV ceftriaxone 1 g daily and IV metronidazole 500 mg t.i.d. - IV Memjrax77 mg once - IV ondansetron 4 mg Q 8 p.r.n. - IV pantoprazole 40 mg daily. Goal of care discussed with the patient for more than 20 minutes full code Plan discussed with Dr. Goff Plan discussed with: Patient, Other My Orders My Orders Orders - TOÑA GOMEZ Procedure Category Date Status Time Thyroid Stimulating LAB 05/24/24 In Process Hormone 07:52 Chest Portable XY 05/24/24 Resulted 08:00 Ct Ab Pel Wo Con-No CT 05/24/24 Resulted Oral Or Iv 09:01 * Surgical Consult CONS 05/24/24 Transmitted Ceftriaxone 1gm/50ml PHA 05/25/24 In Process D5w (Rocephin) 09:00 Metronidazole PHA 05/24/24 In Process 500mg/100ml (Flagyl 22:00 Date of Service: May 24, 2024 Billing Provider: DARBY PERERA MD Common Visit Codes: [id number] INP/OBS CARE(HIGH) TOÑA GOMEZ May 24, 2024 14:50 DARBY PERERA MD May 25, 2024 00:33
[2024-05-24] MEDS: metroNIDAZOLE 500MG/100ML 100 ML IV SCH (21:26)
[2024-05-25] VITALS (12 sets, daily range): BP systolic 73–122; BP diastolic 44–56; PULSE 55–113; RESP 15–21; TEMP 97.6–98.9; O2SAT 92–100
[2024-05-25 06:04] LABS: Basophils # (auto) 0 10 ^3/uL (0-0.2); Basophils % (auto) 0.5 % (0.0-2.0); Eosinophils # (auto) 0.1 10 ^3/uL (0-0.8); Eosinophils % (auto) 1.4 % (0.0-7.0); Hematocrit 35.4 % (36.0-46.0); Hemoglobin 12.1 g/dL (12.2-16.2); Lymphocytes # (auto) 0.7 10 ^3/uL (0.4-5.4); Lymphocytes % (auto) 11.2 % (10.0-50.0); Mean Corpuscular Hemoglobin 32.9 pg (28.0-32.0); Mean Corpuscular Hgb Conc. 34.1 g/dL (32.0-36.0); Mean Corpuscular Volume 96.6 fL (80.0-100.0); Monocytes # (auto) 0.3 10 ^3/uL (0-1.3); Neutrophils # (auto) 5.2 10 ^3/uL (1.6-8.6); Neutrophils % (auto) 81.9 % (37.0-80.0); Nucleated Red Blood Cells % 0.1 %; Platelet Count (auto) 165 10^3/uL (140-450); Red Blood Cells 3.67 10^6/uL (4.0-5.20); Red Cell Distribution Width 13.7 % (11.8-14.3); White Blood Cell 6.3 10^3/uL (4.4-10.8)
[2024-05-25 06:20] LABS: Alanine Aminotransferase 18 U/L (7-40); Albumin 3.3 g/dL (3.2-4.8); Alkaline Phosphatase 68 U/L (46-116); Anion Gap 7 (5-15); BUN/Creatinine Ratio 11.6 (10.0-20.0); Calcium 8.7 mg/dL (8.7-10.4); Carbon Dioxide 25 mmol/L (20-31); Sodium 139 mmol/L (136-145)
[2024-05-25 06:21] LABS: Bilirubin, Total 0.9 mg/dL (0.2-1.0)
[2024-05-25 06:25] LABS: Aspartate Aminotransferase < 8 U/L (13-40); Blood Urea Nitrogen 8 mg/dL (9-23); Chloride 107 mmol/L (98-107); Glucose 115 mg/dL (74-106); Potassium 3.4 mmol/L (3.5-5.1); Total Protein 5.1 g/dL (5.7-8.2)
--- NOTE | 2024-05-25 09:07 | DVH ---
Procedure: NM NM HIDA SCAN Exam Date: 05/24/2024 04:14 PM Clinical History: R/O CHOLECYSTITIS Comparison Study: CT dated 05/24/2024 Nuclear Medicine Hepatobiliary Scan. Technique: Following the intravenous administration of 5.5 mCi of technetium 99m labeled Choletec multiple plana r abdominal planar images were obtained in anterior projection in 5 minute intervals for 60 minutes . Right lateral images were obtained at 60 minutes after injection. 15 hour delay images were obtained . Findings: The liver appears grossly normal in size. There is no abnormal persistence of the cardiac or blood po ol activity. There is prompt visualization of the gallbladder and excretion of activity into the smal l bowel. Impression: Unremarkable hepatobiliary study without evidence of acute cholecystitis.
[2024-05-25] MEDS: POTASSIUM CHL 20MEQ/100ML 100 ML IV ONE (09:47)
[2024-05-25] MEDS: cefTRIAXone 1GM/50ML D5W 50 ML IV SCH (10:16)
[2024-05-25 11:28] LABS: Hepatitis C Antibody Negative (Negative)
[2024-05-25 13:43] LABS: Hepatitis B Surface Antigen Negative (Negative)
[2024-05-25] MEDS: ceFAZolin 2 GM/D5W100ml 100 ML IV ONE (14:07)
[2024-05-25] MEDS ORDERED: HYDROmorphone HCL 2 MG/ML VL/or syr ONE (14:28)
[2024-05-25] MEDS ORDERED: KETOROLAC TROMETH 30 MG/ML 1ML VIAL ONE (14:29)
[2024-05-25] MEDS ORDERED: ePHEDrine SULFATE 50 MG/ML AMP ONE (14:29)
[2024-05-25] MEDS ORDERED: PROPOFOL 10 MG/ML 20 ML IV ONE (14:29)
[2024-05-25] MEDS ORDERED: fentaNYL CITRATE 100 MCG/2 ML VL ONE (14:29)
[2024-05-25] MEDS ORDERED: GLYCOPYRROLATE 0.2 MG/ML 1ML VIAL ONE (14:29)
[2024-05-25] MEDS ORDERED: ONDANSETRON HCL 4 MG/2 ML VIAL ONE (14:29)
[2024-05-25] MEDS ORDERED: MIDAZOLAM HCL 2MG/2ML 2ml VIAL (1mg/ml) ONE (14:29)
[2024-05-25] MEDS ORDERED: ROCURONIUM 10MG/ML 10ML VIAL IV ONE (14:30)
[2024-05-25] MEDS ORDERED: KETAMINE 50mg/ML 1ml syringe ONE (14:31)
[2024-05-25] MEDS ORDERED: DexAMETHasone SOD PHOS 10MG/1ML VIAL INJ ONE (14:31)
[2024-05-25] MEDS ORDERED: LIDOCAINE 2% (LOCAL ANESTH.) PF 5ml SDV ONE (14:31)
[2024-05-25] MEDS: LIDOCAINE 1% HCL (LOCAL ANESTH.) INJ 20ML MDV ONE (14:33)
[2024-05-25] MEDS: BUPIVACAINE HCL 0.25% P/F 10 ML VIAL ONE (14:33)
[2024-05-25] MEDS: LIDOCAINE W/ EPINEPHRINE 2% INJ 20ML VIAL ONE (14:33)
[2024-05-25] MEDS ORDERED: SUGAMMADEX 200mg/2ml Vial (100MG/ML) IV ONE (15:05)
--- NOTE | 2024-05-25 15:26 | ECG ---
[facility] Test Date: 2024-05-25 Test Time: 05:30:51 Pat Name: MAURICIO PETERSEN Department: Respiratoy Room: [address] [place] [address] Gender: F [employer] Teacher: sahara : 1970 Requested By: NEDA RESENDIZ Order Number: [id number] Reading MD: Wilton Orta Measurements Intervals [place] Rate: 55 P: 51 WA: 160 QRS: 22 QRSD: 88 T: 31 QT: 427 QTc: 409 Interpretive Statements Sinus rhythm Low voltage, precordial leads Abnormal R-wave progression, early transition Baseline wander in lead(s) V6 Electronically Signed On 05-26-2024 9:34:08 PST by Wilton Orta Please click the below link to view image of tracing.
[2024-05-25] MEDS ORDERED: HYDROmorphone HCL 2 MG/ML VL/or syr IV PRN (15:30)
--- NOTE | 2024-05-25 15:51 | DVHOP ---
DATE OF SURGERY: 05/25/2024 PREOPERATIVE DIAGNOSIS: Appendicitis. POSTOPERATIVE DIAGNOSIS: Appendicitis. SURGEON: Siddharth Smith MD CONGRESSIONAL AIDE: Bobo Marin NP ANESTHESIA: General endotracheal, Dr. Ramirez. PROCEDURES: * Laparoscopy. * Laparoscopic appendectomy. DESCRIPTION OF PROCEDURE: Under general endotracheal anesthesia with the patient's skin prepped and draped, a supraumbilical incision was made and Veress needle inserted by the hanging drop technique to establish pneumoperitoneum to 15 mmHg pressure by insufflation with carbon dioxide. With the abdomen fully distended, the needle was removed and replaced with a 5 mm trocar port through which a 0-degree viewing laparoscope was inserted and under direct vision additional 5 and 10 mm ports inserted through the abdominal wall in the midline. Laparoscopy revealed acute appendicitis. The gallbladder appeared to be entirely normal on its exterior surface with no evidence of any chronic inflammation. There were no pericholecystic adhesions. There was no fluid. There was no inflammation. The wall appeared normal color. For this reason, because the right lower quadrant was occupied by a phlegmon containing an acutely inflamed appendix and surrounding purulence of the cecal wall as well as necrotic fat attached to the lateral abdominal wall, decided to only proceed with the appendectomy. The appendix was placed on tension, traced to its confluence with the cecum. At its base at the confluence with the cecum, it was crossclamped and divided with an Endo ELVIRA stapler equipped with vascular jacey. The cecum was markedly inflamed and there was marked exudate surrounding the cecal confluence with the appendix. However, I did the very best attempt at placing the appendix on tension and tracing it all the way to the confluence with the cecum. The appendix was severed with the Endo ELVIRA, placed into a bag together with the necrotic fat from the lateral wall of the abdomen, and the specimen was extracted from the peritoneal cavity through the 10 mm port site. The right lower quadrant was then profusely irrigated, irrigant was aspirated. Hemostasis was meticulously accomplished. Due to the inflammation and infection, a 10 mm Jose Ramon-Gandhi drain was placed to the vicinity of the cecum but not abutting against the appendiceal closure. The drain was exteriorized through the 5 mm port site in the midline and secured with a 2-0 nylon suture. Instrumentation was then withdrawn after assurance of complete hemostasis. At the termination of procedure, there was no evidence of bleeding from either the appendicectomy site or from the port sites. The instrumentation was withdrawn. Pneumoperitoneum was evacuated. Fascial defect closed using 0 Vicryl. Wounds approximated using Monocryl sutures, Dermabond glue, and Steri-Strips. The patient remained hemodynamically stable throughout the procedure and left the operating room following an accurate needle and sponge count. The patient's mother was thoroughly informed by calling [phone]. MD [address]/JOSE TID: [id number] RECEIPT: [id number]
[2024-05-25] MEDS: ALBUTEROL SULF 2.5 MG/0.5ML(0.5%) NEB SOLN NEB ONE (16:07)
[2024-05-25] MEDS: IPRATROPIUM BROM 0.5 MG/2.5ML INH SOL NEB ONE (16:08)
[2024-05-25] MEDS: ONDANSETRON HCL 4 MG/2 ML VIAL IV ONE (16:29)
--- NOTE | 2024-05-25 16:57 | DVHPNRES ---
Progress Note Date Seen: May 25, 2024 Resident Creating Document: TOÑA GOMEZ RESIDENT Medical Necessity Reason Pt with a Central, PICC or Fol: No Subjective Review of Systems This is a 34-year-old female with no significant past medical history presented to the ED with a chief complaint of epigastric pain for 1 day prior to this admission. According to the patient abdominal pain started 3 days ago but getting worse for last 1 day which was constant, colicky pain, 11/10, without any aggravating and relieving factors and associated with nausea and few episodes of vomiting. Patient was seen and examined on the bedside. She is alert oriented x3. Complaint of lower abdominal pain and nausea. HIDA scan excluded possibility of acute cholecystitis. The patient went to OR today for laparoscopic appendectomy. Objective vital signs Vital Sign Date Time Temp Pulse Resp B/P (MAP) Pulse Ox O2 Delivery O2 Flow Rate FiO2 05/25/24 16:13 94 20 99 05/25/24 16:10 78/44 (55) 05/25/24 16:08 Nasal Cannula 4.0 05/25/24 16:08 36 05/25/24 15:25 99.4 99.4 Total Intake and Output 05/24/24 05/24/24 05/25/24 15:00 23:00 07:00 Intake Total 580 ml 520 ml Balance 580 ml 520 ml medications Current Medications Medications Dose Ordered Sig/Jeannette Route Start Time Stop Time Status Last Admin Dose Admin Pantoprazole Sodium 40 mg DAILY IV 05/24/24 10:00 05/25/24 09:46 40 MG Sodium Chloride 10 ml Q8HR IV 05/23/24 22:00 05/25/24 14:20 10 ML Acetaminophen/ Hydrocodone Bitart 1 tab Q4HP PRN PO 05/23/24 17:45 05/25/24 13:17 1 TAB Ondansetron HCl 4 mg Q4HP PRN IV 05/23/24 17:45 05/23/24 23:08 4 MG Docusate Sodium 100 mg BIDPRN PRN PO 05/23/24 17:45 Acetaminophen 650 mg Q6HP PRN PO 05/23/24 17:45 05/25/24 01:15 650 MG Morphine Sulfate 2 mg Q4HPRN PRN IV 05/23/24 17:45 05/23/24 23:31 2 MG Nitroglycerin 0.4 mg Q5MINP PRN SL 05/23/24 21:30 Morphine Sulfate 2 mg Q30M PRN IV 05/23/24 21:30 Ceftriaxone Sodium 50 ml @ 100 mls/hr DAILY@09 IV 05/25/24 09:00 05/25/24 10:16 100 MLS/HR Metronidazole 100 ml @ 100 mls/hr Q8HR IV 05/24/24 22:00 05/25/24 13:54 100 MLS/HR Potassium Chloride/Dextrose/ Sod Cl 1,000 ml @ 120 mls/hr Q8H20M IV 05/24/24 12:45 05/25/24 01:30 120 MLS/HR Examination Physical examination: General Appearance: Alert, Oriented X3, Cooperative, No acute distress HEENT: Atraumatic, PERRLA, EOMI, Mucous membrane moist/pink Respiratory: Clear to auscultation, Normal air movement Cardiovascular: Regular rate, Normal S1, Normal S2, No murmurs, no chest wall tenderness Abdominal: Normal bowel sounds, Soft, tenderness in the lower abdomen, No hepatospenomegaly, No masses Extremities: No clubbing, No cyanosis, No edema, Normal pulses, No tenderness/swelling Skin: No rashes, No breakdown, No significant lesion Neuro: Normal gait, Normal speech, Strength at 5/5 X4 ext, Normal tone, Sensation intact, grossly intact cranial nerves Psych/Mental Status: Mental status NL, Mood NL laboratory and microbiology Laboratory Tests 05/25/24 05:38 Test 05/25/24 05:38 Range/Units Serum Glucose 115 H 74-106 mg/dL Labs and/or images reviewed: Labs reviewed by me, Image(s) reviewed by me Problem List/Assessment/Plan Problem List/Assessment/Plan Assessment and plan: # Intractable abdominal pain, nausea and vomiting # Possible acute appendicitis # Possible cholelithiasis without acute cholecystitis # SIRS/ Sepsis due to above - HIDA scan excluded acute cholecystitis - U/S of the gallbladder demonstrated gallstone - CT abdomen pelvis revealed acute uncomplicated appendicitis, gallstones and bibasilar atelectasis - Surgery is on the board - IV D5 W/0.45% normal saline at 120 mL/hour - NPO - patient underwent laparoscopic appendectomy today on 0 and the procedure was uneventful - IV ceftriaxone 1 g daily and IV metronidazole 500 mg t.i.d. - IV Toradol 15 mg once - IV ondansetron 4 mg Q 8 p.r.n. - IV pantoprazole 40 mg daily. Goal of care discussed with the patient for more than 20 minutes full code Plan discussed with: Patient, Other Date of Service: May 25, 2024 Billing Provider: DARBY PERERA MD Common Visit Codes: [id number] INP/OBS CARE(HIGH) TOÑA GOMEZ RESIDENT May 25, 2024 16:57 DARBY PERERA MD May 31, 2024 09:42
[2024-05-26] VITALS (7 sets, daily range): BP systolic 82–118; BP diastolic 52–91; PULSE 53–80; RESP 17–20; TEMP 97.6–98.1; O2SAT 93–98
[2024-05-26 00:47] LABS: Urine Bacteria FEW /hpf (None Seen); Urine Blood Negative /uL (Negative); Urine Clarity Clear (Clear); Urine Color Colorless (Yellow); Urine Protein, UAD Negative (Negative); Urine Specific Gravity 1.003 (1.001-1.035); Urine Squamous Epithelial Cell FEW /hpf (<5); Urine Urobilinogen Normal (Negative); Urine WBC 1 /HPF (0-5)
[2024-05-26 06:41] LABS: Basophils # (auto) 0 10 ^3/uL (0-0.2); Basophils % (auto) 0.1 % (0.0-2.0); Eosinophils # (auto) 0 10 ^3/uL (0-0.8); Hematocrit 34.2 % (36.0-46.0); Hemoglobin 11.7 g/dL (12.2-16.2); Lymphocytes # (auto) 0.5 10 ^3/uL (0.4-5.4); Lymphocytes % (auto) 7.9 % (10.0-50.0); Mean Corpuscular Hgb Conc. 34.2 g/dL (32.0-36.0); Mean Corpuscular Volume 96.4 fL (80.0-100.0); Monocytes # (auto) 0.2 10 ^3/uL (0-1.3); Monocytes % (auto) 4.2 % (0.0-12.0); Neutrophils # (auto) 5.1 10 ^3/uL (1.6-8.6); Neutrophils % (auto) 87.8 % (37.0-80.0); Nucleated Red Blood Cells % 0.1 %; Platelet Count (auto) 177 10^3/uL (140-450); Red Blood Cells 3.55 10^6/uL (4.0-5.20); Red Cell Distribution Width 13.7 % (11.8-14.3); White Blood Cell 5.8 10^3/uL (4.4-10.8)
[2024-05-26 06:45] LABS: Calcium 9.4 mg/dL (8.7-10.4); Potassium 4.7 mmol/L (3.5-5.1); Sodium 138 mmol/L (136-145)
[2024-05-26 06:47] LABS: Anion Gap 8 (5-15); Carbon Dioxide 21 mmol/L (20-31); Chloride 109 mmol/L (98-107)
[2024-05-26 06:55] LABS: BUN/Creatinine Ratio 8.5 (10.0-20.0); Blood Urea Nitrogen < 5 mg/dL (9-23); Glucose 154 mg/dL (74-106)
--- NOTE | 2024-05-26 10:58 | DVHPN2 ---
Progress Note Date Seen: May 26, 2024 Medical Necessity Reason Pt with a Central, PICC or Fol: No Objective vital signs Vital Sign Date Time Temp Pulse Resp B/P (MAP) Pulse Ox O2 Delivery O2 Flow Rate FiO2 05/26/24 08:30 97.6 56 17 93/57 (69) 98 97.6 05/25/24 20:00 Room Air* 0 21 Total Intake and Output 05/25/24 05/25/24 05/26/24 15:00 23:00 07:00 Intake Total 150 ml 1100 ml 1400 ml Output Total 25 ml 20 ml Balance 150 ml 1075 ml 1380 ml medications Current Medications Medications Dose Ordered Sig/Jeannette Route Start Time Stop Time Status Last Admin Dose Admin Pantoprazole Sodium 40 mg DAILY IV 05/24/24 10:00 05/26/24 09:19 40 MG Sodium Chloride 10 ml Q8HR IV 05/23/24 22:00 05/26/24 05:21 10 ML Acetaminophen/ Hydrocodone Bitart 1 tab Q4HP PRN PO 05/23/24 17:45 05/26/24 09:26 1 TAB Ondansetron HCl 4 mg Q4HP PRN IV 05/23/24 17:45 05/23/24 23:08 4 MG Docusate Sodium 100 mg BIDPRN PRN PO 05/23/24 17:45 Acetaminophen 650 mg Q6HP PRN PO 05/23/24 17:45 05/25/24 01:15 650 MG Morphine Sulfate 2 mg Q4HPRN PRN IV 05/23/24 17:45 05/23/24 23:31 2 MG Nitroglycerin 0.4 mg Q5MINP PRN SL 05/23/24 21:30 Morphine Sulfate 2 mg Q30M PRN IV 05/23/24 21:30 Ceftriaxone Sodium 50 ml @ 100 mls/hr DAILY@09 IV 05/25/24 09:00 05/26/24 09:20 100 MLS/HR Metronidazole 100 ml @ 100 mls/hr Q8HR IV 05/24/24 22:00 05/26/24 05:13 100 MLS/HR Potassium Chloride/Dextrose/ Sod Cl 1,000 ml @ 120 mls/hr Q8H20M IV 05/24/24 12:45 05/26/24 05:46 120 MLS/HR laboratory and microbiology Laboratory Tests 05/26/24 05:43 Test 05/26/24 05:43 Range/Units Serum Glucose 154 H 74-106 mg/dL Problem List/Assessment/Plan Problem List/Assessment/Plan 05/26/24 AFEBRILE, NORMOTENSIVE, ABDOMEN APPROPRIATELY TENDER, SHE FEELS "A LOT BETTER" WOUNDS CLEAN AND WELL APPROXIMATED, LABS OK Plan discussed with: Patient NEDA RESENDIZ MD May 26, 2024 10:58
--- NOTE | 2024-05-26 12:18 | DVHPNRES ---
Progress Note Date Seen: May 26, 2024 Resident Creating Document: TOÑA GOMEZ RESIDENT Medical Necessity Reason Pt with a Central, PICC or Fol: No Subjective Review of Systems This is a 34-year-old female with no significant past medical history presented to the ED with a chief complaint of epigastric pain for 1 day prior to this admission. According to the patient abdominal pain started 3 days ago but getting worse for last 1 day which was constant, colicky pain, 11/10, without any aggravating and relieving factors and associated with nausea and few episodes of vomiting. Patient was seen and examined on the bedside. She is alert oriented x3. Complaint of lower abdominal pain and nausea. HIDA scan excluded possibility of acute cholecystitis. status post laparoscopic appendectomy day 1 and 12 hour CHELY drain collection 40 mL. Patient complaint of mild pain around the site of incision and mentioned 2 bowel movement after the surgery. Surgery evaluated the patient today and recommended clear liquid diet. Objective vital signs Vital Sign Date Time Temp Pulse Resp B/P (MAP) Pulse Ox O2 Delivery O2 Flow Rate FiO2 05/26/24 08:30 97.6 56 17 93/57 (69) 98 97.6 05/25/24 20:00 Room Air* 0 21 Total Intake and Output 05/25/24 05/25/24 05/26/24 15:00 23:00 07:00 Intake Total 150 ml 1100 ml 1400 ml Output Total 25 ml 20 ml Balance 150 ml 1075 ml 1380 ml medications Current Medications Medications Dose Ordered Sig/Jeannette Route Start Time Stop Time Status Last Admin Dose Admin Pantoprazole Sodium 40 mg DAILY IV 05/24/24 10:00 05/26/24 09:19 40 MG Sodium Chloride 10 ml Q8HR IV 05/23/24 22:00 05/26/24 05:21 10 ML Acetaminophen/ Hydrocodone Bitart 1 tab Q4HP PRN PO 05/23/24 17:45 05/26/24 09:26 1 TAB Ondansetron HCl 4 mg Q4HP PRN IV 05/23/24 17:45 05/23/24 23:08 4 MG Docusate Sodium 100 mg BIDPRN PRN PO 05/23/24 17:45 Acetaminophen 650 mg Q6HP PRN PO 05/23/24 17:45 05/25/24 01:15 650 MG Morphine Sulfate 2 mg Q4HPRN PRN IV 05/23/24 17:45 05/23/24 23:31 2 MG Nitroglycerin 0.4 mg Q5MINP PRN SL 05/23/24 21:30 Morphine Sulfate 2 mg Q30M PRN IV 05/23/24 21:30 Ceftriaxone Sodium 50 ml @ 100 mls/hr DAILY@09 IV 05/25/24 09:00 05/26/24 09:20 100 MLS/HR Metronidazole 100 ml @ 100 mls/hr Q8HR IV 05/24/24 22:00 05/26/24 05:13 100 MLS/HR Potassium Chloride/Dextrose/ Sod Cl 1,000 ml @ 120 mls/hr Q8H20M IV 05/24/24 12:45 05/26/24 05:46 120 MLS/HR Examination Physical examination: General Appearance: Alert, Oriented X3, Cooperative, No acute distress HEENT: Atraumatic, PERRLA, EOMI, Mucous membrane moist/pink Respiratory: Clear to auscultation, Normal air movement Cardiovascular: Regular rate, Normal S1, Normal S2, No murmurs, no chest wall tenderness Abdominal: Abdomen is soft, dressing dry and no erythema around the incision site, Normal bowel sounds, No hepatospenomegaly, No masses Extremities: No clubbing, No cyanosis, No edema, Normal pulses, No tenderness/swelling Skin: No rashes, No breakdown, No significant lesion Neuro: Normal gait, Normal speech, Strength at 5/5 X4 ext, Normal tone, Sensation intact, grossly intact cranial nerves. Psych/Mental Status: Mental status NL, Mood NL laboratory and microbiology Laboratory Tests 05/26/24 05:43 Test 05/26/24 05:43 Range/Units Serum Glucose 154 H 74-106 mg/dL Labs and/or images reviewed: Labs reviewed by me, Image(s) reviewed by me Problem List/Assessment/Plan Problem List/Assessment/Plan Assessment and plan: # Intractable abdominal pain, nausea and vomiting # Possible acute appendicitis # Possible cholelithiasis without acute cholecystitis # SIRS/ Sepsis due to above - HIDA scan excluded acute cholecystitis - U/S of the gallbladder demonstrated gallstone - CT abdomen pelvis revealed acute uncomplicated appendicitis, gallstones and bibasilar atelectasis - Surgery is on the board - IV D5 W/0.45% normal saline at 120 mL/hour - Patient underwent laparoscopic appendectomy today on 0 2/0 - S/P laparoscopic appendectomy and 12 hour CHELY drain collection 40 mL. - Clear liquid diet per surgery and we will follow their recommendation - IV ceftriaxone 1 g daily and IV metronidazole 500 mg t.i.d. - IV ondansetron 4 mg Q 8 p.r.n. - IV pantoprazole 40 mg daily. - [place] 5/325 mg q.6 p.r.n. Goal of care discussed with the patient for more than 20 minutes full code Plan discussed with Dr. Goff Plan discussed with: Patient, Other Date of Service: May 26, 2024 Billing Provider: DARBY PERERA MD Common Visit Codes: [id number] INP/OBS CARE(HIGH) TOÑA GOMEZ RESIDENT May 26, 2024 12:17 DARBY PERERA MD May 31, 2024 09:48
[2024-05-27 01:00] VITALS: BP 96/57; PULSE 67; RESP 16; TEMP 98; O2SAT 100
[2024-05-27 05:00] VITALS: BP 103/52; PULSE 69; RESP 17; TEMP 98.2; O2SAT 93
[2024-05-27 07:33] LABS: Potassium 3.9 mmol/L (3.5-5.1); Sodium 142 mmol/L (136-145)
[2024-05-27 07:34] LABS: Anion Gap 7 (5-15); Calcium 8.8 mg/dL (8.7-10.4); Carbon Dioxide 22 mmol/L (20-31); Chloride 113 mmol/L (98-107)
[2024-05-27 07:36] LABS: Basophils # (auto) 0 10 ^3/uL (0-0.2); Basophils % (auto) 0.2 % (0.0-2.0); Eosinophils # (auto) 0.1 10 ^3/uL (0-0.8); Eosinophils % (auto) 1.1 % (0.0-7.0); Hematocrit 32.2 % (36.0-46.0); Hemoglobin 11.1 g/dL (12.2-16.2); Lymphocytes # (auto) 1.6 10 ^3/uL (0.4-5.4); Lymphocytes % (auto) 26.6 % (10.0-50.0); Mean Corpuscular Hemoglobin 32.8 pg (28.0-32.0); Mean Corpuscular Hgb Conc. 34.4 g/dL (32.0-36.0); Mean Corpuscular Volume 95.5 fL (80.0-100.0); Monocytes # (auto) 0.3 10 ^3/uL (0-1.3); Neutrophils % (auto) 67.1 % (37.0-80.0); Platelet Count (auto) 177 10^3/uL (140-450); Red Blood Cells 3.37 10^6/uL (4.0-5.20); Red Cell Distribution Width 13.4 % (11.8-14.3)
[2024-05-27 07:39] LABS: Glucose 101 mg/dL (74-106)
[2024-05-27 07:40] LABS: BUN/Creatinine Ratio 7.1 (10.0-20.0); Blood Urea Nitrogen < 5 mg/dL (9-23)
[2024-05-27 08:30] VITALS: BP 100/69; PULSE 57; RESP 18; TEMP 97.9; O2SAT 96
--- NOTE | 2024-05-27 09:04 | DVHPN2 ---
Progress Note Date Seen: May 27, 2024 Medical Necessity Reason Pt with a Central, PICC or Fol: No Subjective Patient reports: No new complaints, Feels better Review of Systems: HEENT:Normal, CVS:Normal, RESPIRATORY:Normal, GI:Normal, :Normal, MSK:Normal, NEURO:Normal Objective vital signs Vital Sign Date Time Temp Pulse Resp B/P (MAP) Pulse Ox O2 Delivery O2 Flow Rate FiO2 05/27/24 05:00 98.2 69 17 103/52 (69) 93 98.2 05/26/24 20:00 Room Air* 0 21 Total Intake and Output 05/26/24 05/26/24 05/27/24 15:00 23:00 07:00 Intake Total 50 ml 800 ml 1120 ml Output Total 1020 ml Balance 50 ml 800 ml 100 ml medications Current Medications Medications Dose Ordered Sig/Jeannette Route Start Time Stop Time Status Last Admin Dose Admin Pantoprazole Sodium 40 mg DAILY IV 05/24/24 10:00 05/26/24 09:19 40 MG Sodium Chloride 10 ml Q8HR IV 05/23/24 22:00 05/27/24 05:33 10 ML Acetaminophen/ Hydrocodone Bitart 1 tab Q4HP PRN PO 05/23/24 17:45 05/26/24 09:26 1 TAB Ondansetron HCl 4 mg Q4HP PRN IV 05/23/24 17:45 05/23/24 23:08 4 MG Docusate Sodium 100 mg BIDPRN PRN PO 05/23/24 17:45 Acetaminophen 650 mg Q6HP PRN PO 05/23/24 17:45 05/25/24 01:15 650 MG Morphine Sulfate 2 mg Q4HPRN PRN IV 05/23/24 17:45 05/23/24 23:31 2 MG Nitroglycerin 0.4 mg Q5MINP PRN SL 05/23/24 21:30 Morphine Sulfate 2 mg Q30M PRN IV 05/23/24 21:30 Ceftriaxone Sodium 50 ml @ 100 mls/hr DAILY@09 IV 05/25/24 09:00 05/26/24 09:20 100 MLS/HR Metronidazole 100 ml @ 100 mls/hr Q8HR IV 05/24/24 22:00 05/27/24 05:30 100 MLS/HR Potassium Chloride/Dextrose/ Sod Cl 1,000 ml @ 120 mls/hr Q8H20M IV 05/24/24 12:45 05/26/24 15:17 120 MLS/HR Examination: GENERAL:Normal, HEENT:Normal, NECK:Normal, LUNGS:Normal, CVS:Normal, ABDOMEN:Abnormal (chely DRAINS), MSK:Normal, SKIN:Normal laboratory and microbiology Laboratory Tests 05/27/24 06:15 Test 05/27/24 06:15 Range/Units Serum Glucose 101 74-106 mg/dL Problem List/Assessment/Plan Problem List/Assessment/Plan 05/27/24 DOING WELL , NO NEW COMPLAINTS, TOLERATING DIET, BOWEL ACTIVITY, ABDOMEN SOFT, NON DISTENDED, APPROPRIATELY TENDER, CHELY DRAIN SEROUS FLUID, OK TO DISCHARGE PER SURGERY POINT OF VIEW, PATIENT TO FOLLOW UP IN CLINIC IN 7- 10 DAYS Plan discussed with: Patient, Other (DR. RESENDIZ) XENIA MORTON NP May 27, 2024 09:04
[2024-05-27] MEDS ORDERED: FAMO20TA10 PO (12:16)
[2024-05-27] MEDS ORDERED: AUG875T PO (12:16)
[2024-05-27] MEDS ORDERED: ACET500T58 PO (12:16)
[2024-05-27 12:56] VITALS: BP 90/51; PULSE 48; RESP 18; TEMP 98.6; O2SAT 96
--- NOTE | 2024-05-27 14:38 | DVHDSRES ---
Discharge Summary Date of Admission Resident Creating Document: TOÑA GOMEZ RESIDENT May 23, 2024 at 21:28 Date of Discharge: May 27, 2024 Admitting Diagnosis Intractable abdominal pain likely due to appendicitis Wounds: No wound was present. Labs/Diagnostic Data: Laboratory Results Test 05/27/24 06:15 05/25/24 23:30 05/25/24 05:38 05/24/24 08:14 White Blood Count 6.0 10^3/uL (4.4-10.8) Red Blood Count 3.37 10^6/uL (4.0-5.20) Hemoglobin 11.1 g/dL (12.2-16.2) Hematocrit 32.2 % (36.0-46.0) Mean Corpuscular Volume 95.5 fL (80.0-100.0) Mean Corpuscular Hemoglobin 32.8 pg (28.0-32.0) Mean Corpuscular Hemoglobin Concent 34.4 g/dL (32.0-36.0) Red Cell Distribution Width 13.4 % (11.8-14.3) Platelet Count 177 10^3/uL (140-450) Mean Platelet Volume 9.5 fL (6.9-10.8) Neutrophils (%) (Auto) 67.1 % (37.0-80.0) Lymphocytes (%) (Auto) 26.6 % (10.0-50.0) Monocytes (%) (Auto) 5.0 % (0.0-12.0) Eosinophils (%) (Auto) 1.1 % (0.0-7.0) Basophils (%) (Auto) 0.2 % (0.0-2.0) Neutrophils # (Auto) 4.0 10 ^3/uL (1.6-8.6) Lymphocytes # (Auto) 1.6 10 ^3/uL (0.4-5.4) Monocytes # (Auto) 0.3 10 ^3/uL (0-1.3) Eosinophils # (Auto) 0.1 10 ^3/uL (0-0.8) Basophils # (Auto) 0 10 ^3/uL (0-0.2) Nucleated Red Blood Cells 0.0 % Sodium Level 142 mmol/L (136-145) Potassium Level 3.9 mmol/L (3.5-5.1) Chloride Level 113 mmol/L (98-107) Carbon Dioxide Level 22 mmol/L (20-31) Anion Gap 7 (5-15) Blood Urea Nitrogen < 5 mg/dL (9-23) Creatinine 0.70 mg/dL (0.550-1.02) Glomerular Filtration Rate Calc 101 mL/min (>90) BUN/Creatinine Ratio 7.1 (10.0-20.0) Serum Glucose 101 mg/dL (74-106) Calcium Level 8.8 mg/dL (8.7-10.4) Urine Color Colorless (Yellow) Urine Clarity Clear (Clear) Urine pH 6.0 (5.0-9.0) Urine Specific [place] 1.003 (1.001-1.035) Urine Protein Negative (Negative) Urine Ketones Negative (Negative) Urine Blood Negative /uL (Negative) Urine Nitrite Negative (Negative) Urine Bilirubin Negative (Negative) Urine Urobilinogen Normal mg/dL (Negative) Urine Leukocyte Esterase Negative /uL (Negative) Urine RBC <1 /hpf (0 - 4) Urine Microscopic WBC 1 /HPF (0-5) Urine Squamous Epithelial Cells Few /hpf (<5) Urine Bacteria Few /hpf (None Seen) Urine Glucose 3+ mg/dL (Normal) Total Bilirubin 0.9 mg/dL (0.2-1.0) Aspartate Amino Transferase (AST) < 8 U/L (13-40) Alanine Aminotransferase (ALT) 18 U/L (7-40) Alkaline Phosphatase 68 U/L (46-116) Total Protein 5.1 g/dL (5.7-8.2) Albumin 3.3 g/dL (3.2-4.8) Prothrombin Time 11.4 sec (9.3-11.8) Prothrombin Time INR 1.08 (0.9-1.15) Activated Partial Thromboplast Time 27.9 SEC (24.5-34.5) Test 05/24/24 03:29 05/23/24 17:32 05/23/24 13:47 Differential Total Cells Counted 100.0 (100) Neutrophils % (Manual) 96 (37.0-80.0) Band Neutrophils % (Manual) 0 Lymphocytes % (Manual) 4 (10.0-50.0) Monocytes % (Manual) 0 (0-12) Eosinophils % (Manual) 0 (0-7) Basophils % (Manual) 0 (0.0-2.0) Metamyelocytes % (manual) 0 Myelocytes % (Manual) 0 Promyelocytes % (Manual) 0 Blast Cells % (Manual) 0 Reactive Lymphocytes 0 Platelet Estimate Adequate Hemoglobin A1c 5.4 % A1C (<5.7) Thyroid Stimulating Hormone (TSH) 1.51 uIU/mL (0.55-4.78) Hepatitis B Surface Antigen Negative (Negative) Hepatitis C Antibody Negative (Negative) Urine Mucus Few (None Seen) Lipase 25 U/L (12-53) Other Laboratory Tests 05/27/24 06:15 Brief Hx & Hospital Course: This is a 34-year-old female with no significant past medical history presented to the ED with a chief complaint of epigastric pain for 1 day prior to this admission. According to the patient abdominal pain started 3 days ago but getting worse for last 1 day which was constant, colicky pain, 11/10, without any aggravating and relieving factors and associated with nausea and few episodes of vomiting. Hospital course: Patient presented with Intractable abdominal pain, nausea and vomiting. HIDA scan excluded acute cholecystitis and U/S of the gallbladder demonstrated gallstone. CT abdomen pelvis revealed acute uncomplicated appendicitis, gallstones and bibasilar atelectasis. Surgery was on the board and the patient underwent laparoscopic appendectomy with CHELY drain on 0 and the procedure was uneventful. Patient was treated with IV D5 W/0.45% normal saline at 120 mL/hour, IV ceftriaxone 1 g daily, IV metronidazole 500 mg t.i.d. After the surgery we advanced the patient's diet as tolerated and today patient was on soft diet without any vomiting and patient also has few episodes of bowel movement after the surgery. Surgery evaluated the patient today and cleared the patient for discharge. Discharge plan was discussed with the patient and all questions were answered. Patient is being discharged to home. Discharge diagnosis: # Intractable abdominal pain likely due to acute appendicitis, s/p laparoscopic appendectomy # SIRS/ Sepsis due to above # Possible cholelithiasis without acute cholecystitis Discharge Plan: Disposition : Home Medications: Augmentin 875 mg b.i.d. for 5 days, acetaminophen 500 mg t.i.d. p.r.n. for 3 days, Pepcid 20 mg b.i.d. for 14 days. Follow up: PCP in 1 week Outpatient surgery in 1 to 2 weeks. Consults/Reason for consult Surgery was consulted Operations or Procedures Procedure: NM NM HIDA SCAN Exam Date: 05/24/2024 04:14 PM Clinical History: R/O CHOLECYSTITIS Comparison Study: CT dated 05/24/2024 Nuclear Medicine Hepatobiliary Scan. Technique: Following the intravenous administration of 5.5 mCi of technetium 99m labeled Choletec multiple planar abdominal planar images were obtained in anterior projection in 5 minute intervals for 60 minutes . Right lateral images were obtained at 60 minutes after injection. 15 hour delay images were obtained. Findings: The liver appears grossly normal in size. There is no abnormal persistence of the cardiac or blood pool activity. There is prompt visualization of the gallbladder and excretion of activity into the small bowel. Impression: Unremarkable hepatobiliary study without evidence of acute cholecystitis. Exam: CT CT AB PEL WO CON-NO ORAL OR IV History: abdominal pain Comparison Study: CT dated 01/13/2024. Technique: Multidetector spiral CT of the abdomen and pelvis was performed from lung bases to pubic symphysis. Imaging was performed without intravenous contrast. Coronal and sagittal multiplanar reformats were obtained from the axial data set by the technologist. Radiation Dose : 1. Abdomen/Pelvis: CTDIvol 5.6 mGy, DLP 295.8 mGy*cm. Findings: Evaluation of vasculature and solid organs is limited due to lack of intravenous contrast use. Lung Bases: Bilateral lower lobe atelectasis. Visualized portions of the heart and pericardium are unremarkable. Liver: The liver is normal in size. No focal lesions. Gallbladder and Biliary Tree: The gallbladder has multiple gallstones. No intrahepatic or extrahepatic biliary ductal dilatation. Spleen: Unremarkable Pancreas: The pancreas is grossly unremarkable. Adrenal Glands: Unremarkable Kidneys: Kidneys are unremarkable without calculi or hydronephrosis. GI tract: The stomach is grossly normal in appearance. No evidence of small bowel wall thickening or abnormal dilatation to suggest bowel obstruction. The colon is unremarkable. The appendix is fluid-filled and dilated measuring 1.3 cm in diameter with fat stranding. Peritoneum/mesentery/retroperitoneum. No evidence of free intraperitoneal air. No ascites. No evidence of suspicious lymphadenopathy. Abdominal Wall: Unremarkable. Vasculature: The visualized abdominal aorta is normal in size and caliber. Evaluation of abdominal and pelvic vessels is limited due to lack of intravenous contrast. Urinary Bladder: Grossly unremarkable for degree of distention. Pelvic Organs: Unremarkable Musculoskeletal: No aggressive focal bony lesions, acute fractures or dislocation. S shaped scoliosis. IMPRESSION: 1. Acute uncomplicated appendicitis. 2. Gallstones. 3. Bibasilar atelectasis. INDICATION: pain TECHNIQUE: Multiple real-time sonographic images were obtained of the right upper quadrant. COMPARISON: US ABDOMEN LIMITED on DOS: 01/14/24, US LIVER on DOS: 01/14/24 FINDINGS: The liver demonstrates homogenous echotexture without focal mass lesions. The liver measures 14cm. There is no intrahepatic or extrahepatic ductal dilatation. The common duct measures 0.4 mm. Gallstones are noted. The gallbladder wall measures 0.2 mm and is within normal limits. The right kidney measures 9 cm. The right kidney is normal in contour, size, and shape. The echogenicity is normal. There is no hydronephrosis. The pancreas is not well visualized due to overlying bowel gas. IMPRESSION: Gallstones are noted. Condition at Discharge: Stable Final Diagnosis/Problems List # Intractable abdominal pain likely due to acute appendicitis, s/p laparoscopic appendectomy # SIRS/ Sepsis due to above # Possible cholelithiasis without acute cholecystitis Discharge Disposition: Home Discharge Instruct/Medications Diet: Regular Diet comment: Mechanical soft diet for 1 week Activity: No Restrictions, As Tolerated Follow Up/Referral: Follow up with PCP in 1 week Follow up with Outpatient surgery in 1 to 2 weeks. Medications: Augmentin 875 mg bid for 5 days. Discharge Statement: "Patient was advised to return to the ER or call 911 if any headaches, dizziness, shortness of breath, chest pain, abdominal pain, bleeding, fevers, or worsening of medical condition. Patient was counseled about treatment plan, medications, possible side effects, patientverbalized understanding. All questions were answered to the best of my ability. This discharge took greater then 30 minutes in planning, reviewing documentation, counseling the patient, and discussing with other team members." ASSESSMENT ASSESSMENT Assessment # Intractable abdominal pain likely due to acute appendicitis, s/p laparoscopic appendectomy # SIRS/ Sepsis due to above # Possible cholelithiasis without acute cholecystitis Date of Service: May 27, 2024 Billing Provider: DARBY PERERA MD Common Visit Codes: [id number] DISCH DAY >30min FARTOÑA BROCK May 27, 2024 14:38 DARBY PERERA MD May 31, 2024 10:06
[2024-05-27 16:30] VITALS: BP 98/60; PULSE 83; RESP 18; TEMP 98.7; O2SAT 97
[2024-05-27 19:59] VITALS: O2SAT 96
== END 2024-05-27 21:15 | disposition home or self-care (01) | DRG 710 ==
LOC: ER 12:48 → OVERFLOW 21:28 → EAST 05-24 15:19
PROVIDERS: ADMIT Student in an Organized Health Care Education/Training Program; ATTEND Emergency Medicine
PROC: 0DTJ4ZZ Resection of Appendix, Percutaneous Endoscopic Approach (ICD-10-PCS; principal; 2024-05-25 14:37)
DX: A41.9 Sepsis, unspecified organism (principal); K35.80 Unspecified acute appendicitis; K80.20 Calculus of gallbladder without cholecystitis without obstruction; Z80.8 Family history of malignant neoplasm of other organs or systems
CPT/HCPCS: 36415; 71045; 74176; 76705; 78226; 80048; 80053; 81001; 83036; 83690; 84443; 85007; 85025; 85027; 85610; 85730; 86803; 86850; 86900; 86901; 87070; 87075; 87205; 87340; 93005; 94640; G0378; J1100; J1885; J2003; J2250; J2405; J2470; J2704; J3480; J3490